=== PATIENT | female | born 1940 | race Caucasian/White ===

== ENCOUNTER → 2017-10-11 | Outpatient (CLI) | payer MEDICARE, OTHER ==
[~2017-10-11] MED LIST: ASPIR 8181 MG PO; ASPIRIN325 PO; AZOPT OPHTH1 %/10 M1 OP; CENTRUM SILVER1 EAC4 PO; COMBIGAN EYE DR10 ML OP; FIBER500 MG PO; FISH OIL 1,001000 M2 PO; GLUCOSAMINE &1 EACH PO; HYDROCODON-ACE1 EAC7 PO; METOPROLOL SUCC25 M1 PO; NITROSTAT0.4 MG SUBLING; NORVASC10 MG PO; PERCOCET PO; TIMOPTIC2.5 M1 OPHTHALMIC; ULTRAM 50MG TAB50 MG PO; VISION VITAMIN1 EAC1 PO; VITAMIN C500 M1 PO; VITAMIN D-32000 UNIT PO
== END ==
LOC: M.RAD 09:18
DX: Z12.31 Encounter for screening mammogram for malignant neoplasm of breast (principal); M48.061 Spinal stenosis, lumbar region without neurogenic claudication

== ENCOUNTER 2017-12-10 13:37 | Inpatient (IN) | payer MEDICARE, OTHER ==
[~2017-12-10] VITALS: Ht 147.3 cm; Wt 54.9 kg
[~2017-12-10 13:37] MED LIST changes: -NORVASC10 MG PO
[2017-12-10 13:44] VITALS: BP 185/72
[2017-12-10 13:54] LABS: ABSOLUTE BASOPHILS 0.1 thou/uL (0.0-0.2); ABSOLUTE EOSINOPHILS 0.2 thou/uL (0.0-0.7); ABSOLUTE LYMPHOCYTES 2.2 thou/uL (0.8-5.3); ABSOLUTE MONOCYTES 0.5 thou/uL (0.0-1.2); ABSOLUTE NEUTROPHILS 4.3 thou/uL (1.6-8.1); EOSINOPHILS 2.5 %; HEMATOCRIT 42.5 % (37.0-47.0); LYMPHOCYTES 30.5 %; MCH 29.5 pg (26.0-34.0); MCHC 32.8 g/dL (28.0-37.0); NUCLEATED RBCS 0 /100WBC; PLATELET COUNT* 272 thou/uL (150-400); RBC 4.72 mil/uL (4.20-5.00); RDW-CV 12.9 % (10.5-14.5); WBC 7.3 thou/uL (4.0-11.0)
[2017-12-10 14:04] LABS: ANION GAP 8 mmol/L (7-16); BUN 19 mg/dL (7-18); CALCIUM 9.6 mg/dL (8.5-10.1); CHLORIDE 104 mmol/L (98-107); CO2 28 mmol/L (21-32); CREATININE 1.2 mg/dL (0.6-1.3); GLUCOSE 124 mg/dL (70-99); POTASSIUM 3.9 mmol/L (3.5-5.1); SODIUM 140 mmol/L (136-145)
[2017-12-10 14:06] LABS: APTT 27.4 Seconds (25.0-31.3); PROTIME 10.2 Seconds (9.20-11.50)
[2017-12-10 14:14] LABS: ALBUMIN 3.5 g/dL (3.4-5.0); ALKALINE PHOSPHATASE 121 U/L (46-116); NT-PRO BRAIN NAT PEPTIDE 317 pg/mL (<300); SGOT 31 U/L (15-37); SGPT 25 U/L (30-65); TOTAL BILIRUBIN 0.4 mg/dL (<0.1-1.0); TOTAL PROTEIN 8.5 g/dL (6.4-8.2); TROPONIN-I LEVEL <0.06 ng/mL (<0.06)
[2017-12-10 14:15] LABS: URINE BILIRUBIN NEGATIVE (Negative); URINE BLOOD TRACE (Negative); URINE CLARITY CLEAR; URINE COLOR YELLOW; URINE GLUCOSE-RANDOM NEGATIVE (Negative); URINE KETONES TRACE (Negative); URINE NITRITE-REFLEX NEGATIVE (Negative); URINE PROTEIN 1+ (Negative); URINE UROBILINOGEN 0.2 E.U./dl (0.2-1.0)
[2017-12-10 14:20] LABS: URINE LEUKOCYTES-REFLEX 3+ (Negative)
[2017-12-10 14:29] LABS: HYALINE CASTS >10 Many /LPF (None Seen); MUCUS >6 Heavy strn/LPF (None Seen); SQUAMOUS 0-3 Few /LPF (0-3)
[2017-12-10 14:30] LABS: FINE GRANULAR CASTS 4-10 Moderate /LPF (None Seen)
[2017-12-10 14:31] LABS: BACTERIA-REFLEX >30 Many /HPF (None Seen); URIC ACID CRYSTALS 0-3 Few /LPF (None Seen)
[2017-12-10 14:32] LABS: URINE RBC 0-2 Rare /HPF (0-2); URINE WBC-REFLEX 6-15 Few /HPF (0-5); WBC CLUMPS Few (None Seen)
[2017-12-10 15:14] VITALS: BP 215/92
[2017-12-10 16:01] VITALS: BP 190/85
[2017-12-10 20:00] VITALS: BP 171/98
[2017-12-11] VITALS (8 sets, daily range): BP systolic 143–173; BP diastolic 56–81
--- NOTE | 2017-12-11 10:58 | EKG ---
[place] [address] ELECTROCARDIOGRAM REPORT Name: GRACIE PIMENTEL Room: [address] IN .R.#: [id number] Admission: 12/10/17 Attend Phys: Elvis Hardwick, Discharge: 12/12/17 Date of : 40 Report #: [id number] THIS REPORT FOR: //name// [facility] ED Test Date: 2017-12-10 Test Time: 13:48:21 Pat Name: GRACIE HURLEYTHERONJOSE Department: Room: [facility] Gender: F Traveling Engineer: : 1940 Requested By: Bc Vines Order Number: [id number] MD: Reji Gentile Measurements Intervals [place] Rate: 87 P: 67 TN: 157 QRS: 61 QRSD: 79 T: 7 QT: 370 QTc: 445 Interpretive Statements Sinus rhythm No previous ECG available for comparison Electronically Signed On 12-11-2017 10:58:13 CDT by Reji Gentile [email or web address] <ELECTRONICALLY SIGNED> By: Scooter Gentile MD, [facility] 12/11/17 1058 [id number] [id number] Scooter Gentile MD, [facility] /EPI
[2017-12-12] VITALS (11 sets, daily range): BP systolic 137–193; BP diastolic 73–98
[2017-12-12] MEDS ORDERED: NORVASC10 MG PO (10:25)
[2017-12-12 12:05] LABS: ANTI-DNA SCREEN 1 IU/mL (0-9); ANTI-RNP 0.4 AI (0.0-0.9)
--- NOTE | 2017-12-23 09:32 | CON ---
[address] [address] CONSULTATION Name: GRACIE PIMENTEL Room: [address] IN ..#: [id number] Admission: 12/10/17 Attend Phys: Elvis Hardwick, Discharge: 12/12/17 Date of : 40 Report #: [id number] THIS REPORT FOR: //name// CC: Arpit Hardwick DATE OF SERVICE: 12/11/2017 HISTORY OF PRESENT ILLNESS: This is a 77-year-old female patient who was evaluated by me for any neurological etiology for dizziness. The history I get from this patient and the is different than the history, which is there in the chart. They under play the symptoms and wants to go home. From the history from the patient that she had, the kind of spells she had all life, they started as a child and she get 1 or 2 spells per year. She said she never passed out. said she never passed out. They said she was just feeling dizzy. They indicated a typical spell consist of the fact that she feels dizzy. She sits down. It goes away after some time. It typically lasts from a few minutes to about an hour. She is fully conscious during that episode. Nobody has checked her blood pressure or pulse during that time. Her daughter saw this spell and she got excited and she brought her to the hospital. She claims that she had this kind of spells all her life. REVIEW OF SYSTEMS: Indicate the patient has double vision. It looks like it started about 2 weeks ago. She went to an education liaison or an rehabilitation case coordinator who gave her glasses. They have not picked up the glasses. The patient claims that she was told that she will go home today and she will stay here only overnight and she wants to go home. I carried out 14-point review of systems in this patient and that 14-point review of system is noncontributory. She denies any ENT, cardiac, respiratory, GI, , musculoskeletal, constitutional, dermatological, hematological, psychiatric, throat, allergic symptom associated with present symptomatology. PAST MEDICAL HISTORY: Positive for similar spell. FAMILY HISTORY: Negative for any seizures. SOCIAL HISTORY: She does not smoke or drink any alcohol. PHYSICAL EXAMINATION: Indicate she is alert, responsive, oriented. Her speech, concentration, fund of knowledge and memory is at her baseline. Cranial nerve examination 2-12 indicates what looks like left abducens palsy. I could not have a very good look at the patient's fundus. She appeared to have symmetrical strength, sensation, reflexes and tone in all 4 extremities. There is no cerebellar sign. She is moderately built individual who does not [place] [id number] CONSULTATION Name: GRACIE PIMENTEL Room: [address] IN [facility].#: [id number] Admission: 12/10/17 Attend Phys: Elvis Hardwick, Discharge: 12/12/17 Date of : 40 Report #: [id number] eyes, ears and face. Hearing and vision is okay except she has double visions because of left abducens palsy. Her pulses are somewhat difficult to feel, but she has no edema, cyanosis or jaundice. Cardiac examination is unremarkable. No respiratory difficulty or rhonchi was noticed. Blood pressure is 171/75, respirations 15, pulse is 84, temperature is 97.9. LABORATORY DATA: Her WBC count is normal and GFR is somewhat low. She did have an MRI of the brain, which was unremarkable. IMPRESSION: 1. Her dizziness may be related to her fluctuating hypertension. We will defer further evaluation and management to you. 2. 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 She needs an ophthalmological evaluation. She needs workup to look for myasthenia gravis, thyroid abnormality, etc. By hospital policy, myasthenia workup as to be done as an outpatient. The patient insists that she needs to go home. I asked them to talk to the admitting doctor and they are not very happy here and they will discuss that with them. If she goes home, I will suggest doing an MRA of the head, MRA of the neck and myasthenia workup and a good neurophthalmological evaluation as the first test and then decide about the further management. RECOMMENDATIONS: As I mentioned above, she needs an MRA of the head, MRA of the neck, myasthenia marker and a neurophthalmology examination as the first test. That can be done as an inpatient, but by policy some of the test has to be done as an outpatient. I will await their discussion with the admitting doctor and see if they stay here or go home. If they stay here, I will get the testing done tomorrow, the one which can be done here. If they go home, then that will be done as an outpatient. Thank you very much for this referral. <ELECTRONICALLY SIGNED> By: Shankar Hsieh MD 12/23/17 0932 [id number] [id number] Hsieh MD /nt
== END 2017-12-12 16:21 | disposition home or self-care (01) | DRG 682 ==
LOC: M.ERS 13:37 → M.TBA-ER 14:34 → M.2W 14:34
PROVIDERS: Family Medicine; ADMIT Family Medicine
DX: N17.0 Acute kidney failure with tubular necrosis (principal); G92 Toxic encephalopathy; R65.11 Systemic inflammatory response syndrome (SIRS) of non-infectious origin with acute organ dysfunction; N39.0 Urinary tract infection, site not specified; I16.0 Hypertensive urgency; I10 Essential (primary) hypertension; G83.9 Paralytic syndrome, unspecified; Z79.899 Other long term (current) drug therapy

== ENCOUNTER → 2018-07-13 | Outpatient (CLI) | payer MEDICARE, OTHER ==
[~2018-07-13] MED LIST changes: +NORVASC10 MG PO
[2018-07-13 08:33] LABS: CREATININE 1.1 mg/dL (0.6-1.3)
== END ==
LOC: M.LAB 08:00 → M.CT 09:30
PROVIDERS: Surgery
DX: D13.6 Benign neoplasm of pancreas (principal); K57.30 Diverticulosis of large intestine without perforation or abscess without bleeding; N28.1 Cyst of kidney, acquired; J98.4 Other disorders of lung; D25.9 Leiomyoma of uterus, unspecified; M51.37 Other intervertebral disc degeneration, lumbosacral region; Z79.82 Long term (current) use of aspirin; Z79.899 Other long term (current) drug therapy; Z98.890 Other specified postprocedural states

== ENCOUNTER → 2018-12-22 | Outpatient (CLI) | payer MEDICARE, OTHER | LOC: M.RAD 10:41 | DX: Z12.31 Encounter for screening mammogram for malignant neoplasm of breast (principal) ==

== ENCOUNTER → 2019-12-31 | Outpatient (CLI) | payer OTHER | LOC: M.RAD 10:20 | DX: Z12.31 Encounter for screening mammogram for malignant neoplasm of breast (principal) ==

== ENCOUNTER → 2020-12-30 | Outpatient (CLI) | payer OTHER | LOC: M.RAD 09:59 | DX: Z12.31 Encounter for screening mammogram for malignant neoplasm of breast (principal) ==